=== PATIENT | male | born 2000 | race Caucasian/White ===

== ENCOUNTER 2020-10-12 16:48 | Emergency (ER) | payer BC ==
[~2020-10-12] VITALS: Ht 182.9 cm; Wt 81.8 kg
[2020-10-12 16:53] VITALS: BP 127/78; TEMP 98.4
[2020-10-12 17:34] VITALS: PULSE 87
== END 2020-10-12 17:40 | disposition home or self-care (01) ==
LOC: COL.ER 16:48
DX: F45.8 Other somatoform disorders (principal)

== ENCOUNTER 2021-06-16 11:40 | Emergency (ER) | payer BC ==
[~2021-06-16] VITALS: Ht 182.9 cm; Wt 84.1 kg
[2021-06-16 17:40] VITALS: BP 127/68; PULSE 78; TEMP 98.1
== END 2021-06-16 12:45 | disposition home or self-care (01) ==
LOC: COL.ER 11:40
DX: T18.128A Food in esophagus causing other injury, initial encounter (principal)

== ENCOUNTER 2021-06-18 06:56 | Day surgery (SDC) | payer BC ==
[~2021-06-18] VITALS: Ht 182.9 cm; Wt 83.8 kg
[2021-06-18 07:20] VITALS: BP 125/74; PULSE 81; TEMP 96.1
[2021-06-18] MEDS ORDERED: PROAIR HFA0.09 MG/AC IH (07:25)
[2021-06-18] MEDS ORDERED: OSCAL 500 TAB500 MG PO (07:26)
[2021-06-18] MEDS ORDERED: PRILOSEC 20MG20 MG PO (07:26)
[2021-06-18] MEDS ORDERED: FLOVENT DI100 MCG/Ac IH (07:29)
[2021-06-18 08:20] VITALS: BP 107/60; PULSE 66
--- NOTE | 2021-06-18 08:20 | NUR ---
PATIENT TRANSPORTED PER CART FROM GI SUITE TO BAY 5 ACCOMPANIED BY ENDO RN. PATIENT AMBULATED FROM CART TO CHAIR WITH 1 ASSIST SLOW STEADY GAIT. MONITORS APPLIED. VSS. PATIENT TALKING WITH STAFF. 0830 DR MORALES IN ROOM AND SPEAKS WITH PATIENT AND ON THE PHONE IS PATIENTS MOTHER. PATIENT EATS MUFFIN AND DRINKS JUICE WITHOUT PROBLEMS.
[2021-06-18 08:30] VITALS: BP 116/48; PULSE 87; TEMP 98
[2021-06-18 08:50] VITALS: BP 109/72; PULSE 65
--- NOTE | 2021-06-18 08:50 | NUR ---
VSS ON ROOM AIR. PATIENT TOLERATES MUFFIN AND JUICE WITHOUT PROBLEMS. IV SITE DC'D WITH CATHETER TIP INTACT. DISCHARGE INSTRUCTIONS GIVEN VERBAL AND DISCHARGE PACKET GIVEN TO PATIENT. QUESTIONS ANSWERED AND PATIENT VOICED UNDERSTANDING. CHANGES TO STREET CLOTHES. 0900 PATIENT DISMISSED PER WHEEL CHAIR TO POV DRIVEN BY HIS ROOMMATE.
== END 2021-06-18 09:00 | disposition home or self-care (01) ==
LOC: SDCO 06:56
DX: K22.10 Ulcer of esophagus without bleeding (principal); K22.2 Esophageal obstruction; J45.909 Unspecified asthma, uncomplicated; Z79.899 Other long term (current) drug therapy
CPT/HCPCS: J2704; J7120

== ENCOUNTER 2021-09-10 08:06 | Day surgery (SDC) | payer BC ==
[~2021-09-10] VITALS: Ht 182.9 cm; Wt 88.0 kg
[~2021-09-10 08:06] MED LIST: FLOVENT DI100 MCG/Ac IH; OSCAL 500 TAB500 MG PO; PRILOSEC 20MG20 MG PO; PROAIR HFA0.09 MG/AC IH
[2021-09-10 08:21] VITALS: BP 121/67; PULSE 18; TEMP 97.9
[2021-09-10 09:20] VITALS: BP 106/54; PULSE 74
--- NOTE | 2021-09-10 09:20 | NUR ---
Patient returns to bay 2 per cart after having EGD and is awake and alert. Transfers from cart to recliner with one person assist. IV fluids infusing. Temp 98.1. Gag reflux present. Allowed to rest. Call light in reach.
[2021-09-10 09:35] VITALS: BP 106/60; PULSE 89
--- NOTE | 2021-09-10 09:35 | NUR ---
Eating muffin and sipping on Sprite. Dr. Hayes in the room and talks with the patient. All questions answered.
[2021-09-10 09:50] VITALS: BP 113/61; PULSE 71
--- NOTE | 2021-09-10 09:50 | NUR ---
Patient notified ride he is ready for discharge.
--- NOTE | 2021-09-10 10:10 | NUR ---
IV discontinued and patient dresses self. Given dismissal instructions and voices understanding of these.
--- NOTE | 2021-09-10 10:13 | NUR ---
Patient dismissed to home driven by brother and taken to the front door per wheelchair and assisted into vehicle with dismissal instructions in hand.
== END 2021-09-10 10:13 | disposition home or self-care (01) ==
LOC: SDCO 08:06
DX: K20.0 Eosinophilic esophagitis (principal); K21.9 Gastro-esophageal reflux disease without esophagitis; J45.909 Unspecified asthma, uncomplicated
CPT/HCPCS: J7120